=== PATIENT | male | born 1975 | race Caucasian/White ===

== ENCOUNTER 2018-07-25 08:32 | Emergency (ER) | payer OTHER ==
[2018-07-25 08:44] VITALS: RESP 18; TEMP 98
--- NOTE | 2018-07-25 09:45 | C.PDOC ---
History Of Present Illness Pt is a 43 yr old male who was on a plane a couple of weeks ago and then later developed a cough. Pt has a lot of mucus in his nose. Robitussin helped for a few days. Pt also took Mucinex. But pt is now complaining of a tightness in his throat--mostly at night--for the past 4 days; he thinks the tightness is from "dry mucous". No fever during the last 2 weeks. Patient did not get a flu shot this flu season. No body aches. Pt sometimes coughs up green phlegm--very thick. No SOB. No chest pain. Other than recent flight, not around any sick people. PMD: Dr. Diehl / Time Seen by Provider: 07/25/18 09:03 Chief Complaint (Nursing): Cough, Cold, Congestion History Per: Patient History/Exam Limitations: no limitations Onset/Duration Of Symptoms: Days Current Symptoms Are (Timing): Still Present Associated Symptoms: Cough, Nasal Congestion. denies: Fever, Chills, Sore Throat, Myalgias, Nausea, Vomiting, Diarrhea Ear Symptoms: Bilateral: None Past Medical History Reviewed: Historical Data, Nursing Documentation, Vital Signs Vital Signs: Last Vital Signs Temp 98 F 07/25/18 08:40 Pulse 67 07/25/18 08:40 Resp 18 07/25/18 08:40 BP 138/89 07/25/18 08:40 Pulse Ox 97 07/25/18 08:40 - Medical History PMH: HTN Surgical History: No Surg Hx Family History: States: Other Other Family History: cancer - Social History Hx Tobacco Use: No (Vapes) Hx Alcohol Use: No Hx Substance Use: No - Immunization History Hx Tetanus Toxoid Vaccination: No Hx Influenza Vaccination: No Hx Pneumococcal Vaccination: No Review Of Systems Except As Marked, All Systems Reviewed And Found Negative. Constitutional: Negative for: Fever, Chills, Other (bodyaches) ENT: Positive for: Nose Discharge. Negative for: Ear Pain, Throat Pain, Throat Swelling Cardiovascular: Negative for: Chest Pain Respiratory: Positive for: Cough, Sputum. Negative for: Shortness of Breath Gastrointestinal: Negative for: Nausea, Vomiting, Diarrhea ED Course And Treatment O2 Sat by Pulse Oximetry: 97 Disposition Counseled Patient/Family Regarding: Diagnosis, Need For Followup, Rx Given - Disposition Referrals: Seth Diehl MD [Staff Provider] - Disposition: HOME/ ROUTINE Disposition Time: 09:56 Condition: STABLE Additional Instructions: Mr. Kingsley, thank you for letting us take care of you today. Return to the ER if your symptoms worsen, or if any problems. Take the medication listed below as prescribed. Follow up with Dr. Diehl this week for a re-evaluation. Prescriptions: Azithromycin [Zithromax] 1 tab PO DAILY #6 tab Ibuprofen [Motrin Tab] 1 tab PO TID PRN #30 tab PRN Reason: Pain, Moderate (4-7) Instructions: Pneumonia in Adults Forms: [facility] [employer] ([place]er) Print Language: STATELESS - Clinical Impression Clinical Impression: Pneumonia
[2018-07-25 10:05] VITALS: BP 120/80; PULSE 72
[2018-07-25 11:50] VITALS: O2SAT 97
== END 2018-07-25 10:13 | disposition home or self-care (01) ==
LOC: C.ER 08:32
DX: J18.9 Pneumonia, unspecified organism (principal); Z87.891 Personal history of nicotine dependence